=== PATIENT | male | born 1970 | race Caucasian/White ===

== ENCOUNTER 2017-09-20 10:32 | Emergency (ER) | payer OTHER ==
[~2017-09-20] VITALS: Ht 195.6 cm; Wt 113.4 kg
[2017-09-20 10:37] VITALS: BP 165/100
--- NOTE | 2017-09-20 11:18 | ED HEAD/FACIAL INJ COMPLAINT ---
History of Present Illness General Chief Complaint: Laceration Procedure Stated Complaint: S/P INJURY AT WORK TODAY HEAD LAC Source: patient Exam Limitations: no limitations Vital Signs & Intake/Output Vital Signs & Intake/Output Vital Signs Date Time Temp Pulse Resp B/P B/P Pulse O2 O2 Flow FiO2 Mean Ox Delivery Rate 09/20 1148 97.6 09/20 1037 97.6 99 16 165/100 99 Room Air Allergies Coded Allergies: No Known Allergies (09/20/17) Triage Note: PT WITH LAC TO TOP OF HIS HEAD AFTER HITTING IT ON TRUCK DOOR. BLEEDING CONTROLED AT TRIAGE, PT IS UNSURE OF TETANUS STATUS Triage Nurses Notes Reviewed? yes Onset: Abrupt Severity: mild, moderate Severity Numbers: 6 Location: parietal Method of Injury: direct blow Loss of Consciousness: no loss of consciousness HPI: 47-year-old male with no past medical history presents for evaluation of a scalp laceration. Patient states that about one hour prior to presentation he was at work working of the back of a van. The door was open and he was bent over. When he went to stand up he accidentally hit the back of his head on the door causing a laceration. He denies any loss of consciousness, vomiting, changes in vision or severe headache. He does report pain in the area of the laceration. Bleeding is controlled. He does not take blood thinners. No other injuries. He rates his pain as a 6 out of 10 and is not taking any medicine for it. (Tito Nayak) Reconcile Medications No Known Home Medications (Faraz TRUJILLO,Jose Miguel Maradiaga) Past History Travel History Traveled to [place] past 21 day No Medical History Any Pertinent Medical History? see below for history Neurological: TERETS Surgical History Surgical History: non-contributory Psychosocial History What is your primary language Portuguese Tobacco Use: Never used ETOH Use: occasional use Illicit Drug Use: denies illicit drug use Family History Hx Contributory? No (Tito Nayak) Review of Systems Review of Systems Constitutional: Reports: no symptoms. EENTM: Reports: no symptoms. Respiratory: Reports: no symptoms. Cardiovascular: Reports: no symptoms. GI: Reports: no symptoms. Genitourinary: Reports: no symptoms. Musculoskeletal: Reports: no symptoms. Skin: Reports: no symptoms. Neurological/Psychological: Reports: see HPI, headache. Hematologic/Endocrine: Reports: no symptoms. Immunologic/Allergic: Reports: no symptoms. All Other Systems: Reviewed and Negative (Tito Nayak) Physical Exam Physical Exam General Appearance: well developed/nourished, no apparent distress, alert, awake Head: THERE IS A 1.5 CM LINEAR SUPERFICIAL LACERATION TO THE RIGHT PARIETAL SCALP. nO SUBCUTANEOUS TISSUE OR ACTIVE BLEEDING PRESENT. nO FOREIGN BODIES. nO SURROUNDING HEMATOMA. nO RACCOON EYES OR EVANS SIGNS Eyes: Bilateral: normal appearance, PERRL, EOMI. Ears, Nose, Throat: hearing grossly normal Neck: normal inspection, supple, full range of motion, no midline tenderness Respiratory: no respiratory distress Back: normal inspection, normal range of motion, no vertebral tenderness Extremities: normal inspection, normal range of motion, no edema Psychiatric: awake, alert, oriented x 3 Cranial Nerves: normal hearing, normal speech, PERRL Coordination/Gait: normal gait Motor/Sensory: no motor/sensory deficits Skin: intact, normal color, warm/dry (Tito Nayak) Progress Differential Diagnosis: ICH, orbit fracture, skull fracture, SCALP LACERATION, SCALP CONTUSION Plan of Care: Current Medications Sig/Maria Luisa Start time Last Medication Dose Stop Time Status Admin Acetaminophen 975 MG ONCE ONE 09/20 1200 UNVr (Tylenol) 09/20 1201 Patient seen and evaluated. He has a superficial scalp laceration. No active bleeding. He does not take blood thinners he is neurologically intact. There is no loss of consciousness. Patient reports mild headache. The area was cleaned with sterile water and Betadine. Dermabond was used to approximate the wound. Discussed wound care procedures in detail. Tylenol for pain. Discussed return precautions follow-up with primary care doctor in 3 days for recheck. Return sooner with any concerns. Tetanus was updated. (Tito Nayak) Departure Departure Disposition: HOME OR SELF CARE Condition: Stable Clinical Impression Primary Impression: Scalp laceration Qualifiers: Encounter type: initial encounter Qualified Code: S01.01XA - Laceration without foreign body of scalp, initial encounter Referrals: Mamadou Wilson MD (PCP/Family) Additional Instructions: Rest, keep the area clean and dry. Do not wash YOUr hair for at least 3 days. Tylenol as needed for pain. [place] for signs of infection like redness swelling discharge or pain. Make a follow-up appointment with YOUr primary care doctor on Saturday for recheck. Monitor symptoms and return with any concerns. Departure Forms: Customer Survey General Discharge Information (Tito Nayak) Departure Prescriptions: Current Visit Scripts No Known Home Medications PA/TECHNICAL ASSISTANT Co-Sign Statement Statement: ED Attending supervision documentation- [] I saw and evaluated the patient. I have also reviewed all the pertinent lab results and diagnostic results. I agree with the findings and the plan of care as documented in the PA's/TECHNICAL ASSISTANT's documentation. [X] I have reviewed the ED Record and agree with the PA's/TECHNICAL ASSISTANT's documentation. [] Additions or exceptions (if any) to the PAs/TECHNICAL ASSISTANT's note and plan are summarized below: [] (Jose Miguel Ruth DO) Procedures Laceration/Wound Repair Laceration/Wound Repair: Wound Location: head Wound's Depth, Shape: linear, superficial Wound Length (cm): 1.5 Wound Explored: clean, no foreign body removed Irrigated w/ Saline (ccs): 200 Betadine Prep? Yes Wound Debrided: minimal Wound Repaired With: Dermabond Tetanus Status: not up to date (Tito Nayak)
== END 2017-09-20 11:50 ==
LOC: ERH 10:32
DX: S01.01XA Laceration without foreign body of scalp, initial encounter (principal); W22.8XXA Striking against or struck by other objects, initial encounter; Y92.9 Unspecified place or not applicable; Y93.9 Activity, unspecified
CPT/HCPCS: 90471; 90714